=== PATIENT | female | born 1945 | race Caucasian/White ===

== ENCOUNTER → 2016-05-17 | Outpatient (CLI) | payer MEDICARE, OTHER ==
[~2016-05-17] MED LIST: CARDIZEM CD240 MG PO; COUMADIN5 MG PO; DOCUSATE SODIU100 MG PO; FUROSEMIDE40 MG PO; K-DUR20 ME1 PO; LANOXIN PO; LIPITOR20 MG PO; NO MEDICATIONS; PACERONE PO
--- NOTE | ~2016-05-17 | CT57 ---
[facility]. [facility] A Service of [facility] RADIOLOGY TEXT RESULTS PATIENT: SKINNY VARGAS LOCATION: [facility] : 47 UNIT #: [id number] AGE: [address]: Emiliano Franklin SEX: F ORDER DR: [id number] [address] [address] [id number] O MR#: [id number] [facility] #: [id number] NAME: SKINNY VARGAS : 1945 SEX: F STUDY DATE/TIME: 05/17/2016 16:20 UNIT: [facility] ROOM: STUDY DESCRIPTION: CT Chest Wo Cont Attending Physician: Emiliano Franklin M.D. Referring Physician: Emiliano Franklin M.D. Ordering Physician: Physician Non-Staff Primary Care Physician: Tello Parekh M.D. MEDICAL IMAGING REPORT This report is preliminary unless electronic signature is present. EXAM CT chest without contrast INDICATIONS Abnormal chest x-ray. Abnormal finding diagnostic imaging of the chest. Follow up pulmonary nodules. PROCEDURE Unenhanced CT of the chest COMPARISON High-resolution chest CT from 10/14/[address] exam was performed with one or more of the following radiation dose reduction techniques: automatic exposure control, adjustment of mA and/or kV according to patient size, and iterative reconstruction. FINDINGS No dense consolidation, pleural effusion or pneumothorax. There are 2 4-mm nodules in the right lower lobe, 1 of which is in a subpleural location. These nodules are not significantly changed from previous study. Cardiomegaly. Mitral and aortic annular calcification. Coronary artery calcification. The ascending thoracic aorta measures 4.6 cm previously 4.5 cm. There is some stable thickening of the ascending thoracic aorta which may represent postsurgical change. Correlate with operative history. Pulmonary arteries are prominent. Right pulmonary artery measures 3 cm. Scattered mildly prominent mediastinal lymph nodes are stable. No acute findings in the included upper abdomen. Cholelithiasis. There is mild haziness in the mesentery that is probably not significantly changed from previous study. No aggressive appearing bone lesion. [facility] A Service of [facility] RADIOLOGY TEXT RESULTS PATIENT: SKINNY VARGAS LOCATION: [facility] : 47 UNIT #: [id number] AGE: [address]: Emiliano Franklin SEX: F ORDER DR: IMPRESSION 1. No acute findings in the chest. 2. 2 4-mm nodules in the right lower lobe are stable. 3. Multiple incidental findings detailed above are not significantly changed from the previous CT. Dictated by... Francisco Gregory M.D. THIS IS AN ELECTRONICALLY VERIFIED REPORT Francisco Gregory M.D. at 05/19/2016 7:04 AM JOSE ARMANDO/yamil TD: 05/18/2016 13:27 JOB #: [id number] MEDICAL IMAGING REPORT
== END | disposition home or self-care (01) ==
LOC: SCT 16:08
DX: R93.8 Abnormal findings on diagnostic imaging of other specified body structures (principal); R91.8 Other nonspecific abnormal finding of lung field
CPT/HCPCS: 71250

== ENCOUNTER → 2016-10-17 | Outpatient (CLI) | payer MEDICARE, OTHER ==
--- NOTE | ~2016-10-17 | MR17 ---
[facility] A Service of [facility] RADIOLOGY TEXT RESULTS PATIENT: SKINNY VARGAS LOCATION: [facility] : 47 UNIT #: [id number] AGE: [address]: Red Ma II, MD SEX: F ORDER DR: [id number] [place] [id number] O MR#: [id number] Acc #: [id number] NAME: SKINNY VARGAS : 1945 SEX: F STUDY DATE/TIME: 10/17/2016 17:23 UNIT: [facility] ROOM: STUDY DESCRIPTION: MR Brain WWo Contrast Attending Physician: Red Ma II., M.D. Referring Physician: Red Ma II., M.D. Ordering Physician: Red Ma II., M.D. Primary Care Physician: Telol Parekh M.D. MRI CENTER REPORT This report is preliminary unless electronic signature is present. EXAM Brain MRI with and without contrast. DATE 10/17/2016 CLINICAL HISTORY Trigeminal neuralgia, 5-year history of intermittent right facial pain. COMPARISON Head CT dated 09/18/2009. PROCEDURE Brain and cranial nerve MR with and without contrast. FINDINGS Whole brain images show volume loss and nonspecific white matter change, overall moderate, but no restricted diffusion or intracranial mass or abnormal enhancement. 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 Dedicated thin-section images of the IACs and posterior fossa show no abnormal enhancement or mass in either cavernous sinus, at the skull base, or elsewhere in the posterior fossa. There is no evidence of a prominent vascular loop abutting the trigeminal nerve on either side. Meckel cave and the cavernous sinuses appear normal bilaterally. IMPRESSION While there are moderate nonspecific white matter changes in the brain likely with a small vessel disease, there is no imaging identifiable cause for trigeminal neuralgia. Courses of the trigeminal nerves and Meckel cave appear normal bilaterally as do the foramen ovale and the remainder of the central skull base. [facility] A Service of [facility] RADIOLOGY TEXT RESULTS PATIENT: SKINNY VARGAS LOCATION: [facility] : 47 UNIT #: [id number] AGE: [address]: Red Ma II, MD SEX: F ORDER DR: Dictated by... Rush Richardson M.D. THIS IS AN ELECTRONICALLY VERIFIED REPORT Rush Richardson M.D. at 10/21/2016 4:52 PM TEV/tmw TD: 10/18/2016 12:10 JOB #: [id number] MRI CENTER REPORT Page 1 of 1
[2016-10-17 18:00] LABS: POC - CREATININE 0.99 mg/dL (0.44-1.03)
== END | disposition home or self-care (01) ==
LOC: SMRI 13:00
PROVIDERS: Psychiatry & Neurology Neurology
DX: G50.0 Trigeminal neuralgia (principal)
CPT/HCPCS: 70553; 82565; A9581